=== PATIENT | male | born 1960 | race Two or more races ===

== ENCOUNTER 2019-04-04 07:39 | Day surgery (SDC) | payer BC ==
[~2019-04-04] VITALS: Ht 172.7 cm; Wt 73.5 kg
[2019-04-04] VITALS (8 sets, daily range): BP systolic 91–129; BP diastolic 61–79
--- NOTE | 2019-04-04 06:57 | Anethesia Preoperative Eval ---
Anesthesia Pre-op PMH/ROS General Date of Evaluation: Apr 04, 2019 Time of Evaluation: 06:56 Anesthesiologist: cleopatra ASA Score: ASA 3 Mallampati Score Class I : Soft palate, uvula, fauces, pillars visible Class II: Soft palate, uvula, fauces visible Class III: Soft palate, base of uvula visible Class IV: Only hard plate visible Mallampati Classification: Class II Surgeon: matthew Diagnosis: colon screening Surgical Procedure: colonoscopy Anesthesia History: none Family History: no anesthesia problems Allergies: Coded Allergies: No Known Allergies (Unverified , 04/01/19) Medications: see eMAR Patient NPO?: Yes Past Medical History Cardiovascular: Reports: other - hypercholesterolemia, Gastrointestinal/Genitourinary: Reports: other - bph PSxH Narrative: septoplasty, cholecystectomy Anesthesia Pre-op Phys. Exam Physician Exam Last Vital Signs Date Time Temp Pulse Resp B/P (MAP) Pulse Ox O2 Delivery O2 Flow Rate FiO2 04/04/19 08:09 Room Air 04/04/19 08:08 97.8 76 18 129/79 98 Constitutional: NAD Neurologic: CN 2-12 intact Cardiovascular: RRR Respiratory: CTA Gastrointestinal: S/NT/ND Airway Exam Mallampati Score: Class II MO: full Neck: flexible TMD: 2fb ROM: full Anesthesia Pre-op A/P Risk Assessment & Plan Assessment: asa 3 Plan: mac Status Change Before Surgery: No Pre-Antibiotics Drug: Gayla Christine MD Apr 04, 2019 06:57
[~2019-04-04 07:39] MED LIST: Atropine Inj 1mg/10ml Syr IV PRN; DiphenhydrAMINE 50mg/ml Inj IVP PRN; LR 1000ml 1,000 ML IVLG SCH; Midazolam 2mg/2ml Inj IVP PRN; fentaNYL 100 mcg/2 mL IV PRN
[2019-04-04] MEDS ORDERED: Lidocaine 1% MPF 10mg/ml 5ml ONE (08:00)
[2019-04-04] MEDS ORDERED: Propofol 200mg/20ml IV ONE (08:00)
[2019-04-04] MEDS ORDERED: LR 1000ml ONE (08:00)
[2019-04-04] MEDS ORDERED: FLOMAX0.4 MG ORAL (08:12)
[2019-04-04] MEDS ORDERED: CRESTOR20 MG ORAL (08:12)
--- NOTE | 2019-04-04 09:22 | Immediate Post-Op Evaluation ---
Immediate Post-Op Evalulation Immediate Post-Op Evalulation Procedure: colonoscopy w/bx Date of Evaluation: Apr 04, 2019 Time of Evaluation: 09:22 IV Fluids: 375ml lr Blood Products: none Estimated Blood Loss: negligible Blood Pressure Systolic: 91 Blood Pressure Diastolic: 61 Pulse Rate: 56 Respiratory Rate: 18 O2 Sat by Pulse Oximetry: 99 Temperature (Fahrenheit): 97.2 Pain Score (1-10): 0 Nausea: No Vomiting: No Complications none Patient Status: awake, reacts, patent Hydration Status: adequate Drug: Gayla Christine MD Apr 04, 2019 09:22
--- NOTE | 2019-04-04 09:24 | 48 Hour Post Anesthesia Eval ---
Post Anesthesia Evaluation Procedure: colonoscopy w/bx Date of Evaluation: Apr 04, 2019 Time of Evaluation: 09:24 Blood Pressure Systolic: 103 0: 63 Pulse Rate: 57 Respiratory Rate: 18 Temperature (Fahrenheit): 97.2 O2 Sat by Pulse Oximetry: 99 Airway: patent Nausea: No Vomiting: No Pain Intensity: 0 Hydration Status: adequate Cardiopulmonary Status: stable Mental Status/LOC: patient returned to baseline Post-Anesthesia Complications: none Follow-up care needed: N/A Gayla Jameson MD Apr 04, 2019 09:24
--- NOTE | 2019-04-04 19:51 | Short Stay Surgery H&P ---
History of Present Illness History of Present Illness Chief Complaint see typed H&P HPI Ric Armando is a 58 year old male who was admitted on for Colon Screening Patient History Allergies: Coded Allergies: No Known Allergies (Unverified , 04/01/19) Medication History Scheduled Rosuvastatin Calcium* (Crestor*), 20 MG ORAL DAILY, (Reported) Tamsulosin HCl (Flomax), 0.4 MG ORAL DAILY, (Reported) Physical Exam Vital Signs Last Vital Signs Date Time Temp Pulse Resp B/P (MAP) Pulse Ox O2 Delivery O2 Flow Rate FiO2 04/04/19 10:12 63 18 115/75 97 Room Air 04/04/19 09:40 97.8 04/04/19 09:15 6 Plan Attestation Are the patient's medical conditions optimized for surgery? Montana Urbina MD Apr 04, 2019 19:51
--- NOTE | 2019-04-04 19:51 | Pre-Procedure Note/Attestation ---
Pre-Procedure Note/Attestation Complete Prior to Procedure Planned Procedure: not applicable Procedure Narrative: colonoscopy Indications for Procedure Pre-Operative Diagnosis: screening Attestation I attest that I discussed the nature of the procedure; its benefits; risks and complications; and alternatives (and the risks and benefits of such alternatives ), prior to the procedure, with the patient (or the patient's legal patient service representative). I attest that, if there was a reasonable possibility of needing a blood transfusion, the patient (or the patient's legal patient service representative) was given the [facility] standardized written summary, pursuant to the [place] Blood Safety Act ([place] Health and Safety Code # 1645, as amended). I attest that I re-evaluated the patient just prior to the surgery and that there has been no change in the patient's H&P, except as documented below: Montana Urbina MD Apr 04, 2019 19:51
--- NOTE | 2019-04-04 19:53 | Endoscopy Procedure Note ---
Endoscopy Procedure Note General Indication for Procedure: screen Procedures Performed: colonoscopy Operative Findings/Diagnosis: ascending polyp - bx, descending fold vs polyp - inj and bx Specimen: yes Pt Tolerated Procedure Well: Yes Estimated Blood Loss: none Anesthesia Anesthesiologist: Vance more Anesthesia: MAC, moderate sedation Medications Medication Given: see anesthesia record Inserted Devices Implant(s) used?: No Quality Was there any complications?: No GI Core Measures 50 yrs or older w/o bx or poly: Yes 10yrs. F/U recommended: No If not recommended, why?: Above average risk 18 years or older w/prev. colo: No <3yrs. since last colonoscopy: No Med reason:<3 yrs.: System Reason:<3 yrs.: Last colonoscopy >= to 3yrs: Yes Montana Urbina MD Apr 04, 2019 19:53
--- NOTE | 2019-04-04 19:55 | Brief Operative Note ---
Immediate Post Operative Note Operative Note Chief Complaint: Screen Pre-op Diagnosis: screening Procedure: colon Post-op Diagnosis: ascending polyp, descending fold Surgeon: matthew Anesthesiologist: ileana more Anesthesia: MAC Specimen: yes Complications: none Condition: stable Fluids: recorded Estimated Blood Loss: none Drains: none Implant(s) used?: No Montana Urbina MD Apr 04, 2019 19:55
--- NOTE | 2019-04-05 00:15 | Operative Note - Dictated ---
DATE OF OPERATION: 04/04/2019 GASTROENTEROLOGY PROCEDURE REPORT PROCEDURE: Colonoscopy with biopsy and saline injection. SURGEON: Montana Urbina M.D. ANESTHESIA: Please see the separate anesthesiologist notes for details. PRE-ENDOSCOPIC DIAGNOSIS: Need for screening colonoscopy. POST-ENDOSCOPIC DIAGNOSES: 1. Diminutive polyp in the proximal ascending colon, status post biopsy removal. 2. Polyp versus fold in the descending colon. This polyp was injected to raise it, but it appeared to be a fold afterwards. Biopsies were performed. 3. Mild internal hemorrhoids. DESCRIPTION OF PROCEDURE: The procedure, its risks, indications, alternatives, and possible complications including, but not limited to bleeding, infection, perforation, , and anesthesia complications were explained to the patient and informed consent was obtained. The patient was then sedated in the left lateral decubitus position and a rectal exam was done, which was unremarkable. The colonoscope was then introduced in the rectum and advanced to the cecum. The cecum was identified by the appearance of the ileocecal valve. The colonoscope was then gradually withdrawn and the mucosa examined carefully. Examination of the colonic mucosa revealed a diminutive polyp in the proximal ascending colon, which was removed with a biopsy forceps. In the descending colon, there was a fold versus a small polyp seen. Saline was injected under the polyp to raise it, but that completely flattened out through the lesion, it appeared to likely be a fold. The area was only biopsied. Retroflexed view of the rectum revealed mild internal hemorrhoids. The colonoscope was removed. The patient was sent to recovery in good condition. COMPLICATIONS: None. RECOMMENDATIONS: 1. Follow up biopsy results. 2. Outpatient followup. Montana Urbina M.D. DR: GALO JOB#: [id number] CC: Montana Urbina M.D.; Fax#: [phone]
== END 2019-04-04 10:10 | disposition home or self-care (01) ==
LOC: GAS 07:39
DX: Z12.11 Encounter for screening for malignant neoplasm of colon (principal); K63.5 Polyp of colon; K64.8 Other hemorrhoids; E78.00 Pure hypercholesterolemia, unspecified; Z90.49 Acquired absence of other specified parts of digestive tract; D12.2 Benign neoplasm of ascending colon
CPT/HCPCS: 45380; 45381; J2704; 94003; 94150